=== PATIENT | female | born 1970 | race Caucasian/White ===

== ENCOUNTER 2021-03-02 16:00 | Outpatient (CLI) | payer BC, SELFPAY ==
--- NOTE | ~2021-03-02 | MM_ITS ---
EXAMINATION: MM screening [facility] w cordell HISTORY: Screening TECHNIQUE: Craniocaudal and mediolateral oblique 3-D tomosynthesis images were obtained and synthetic 2-D images were generated. CAD analysis was submitted and interpreted. COMPARISON: No prior mammogram is available for comparison at this institution. BREAST PARENCHYMAL COMPOSITION: There are scattered areas of fibroglandular density. FINDINGS: There is focal asymmetry medial aspect of the left breast on CC view. There are no suspicio us masses, calcifications or architectural distortion in the right breast to suggest malignancy. IMPRESSION: 1. Focal left breast asymmetry medially on CC view. 2. Additional mammographic views and possible breast ultrasound are recommended. BI-RADS Category 0: Incomplete: Needs additional imaging evaluation. Reviewed, dictated and finalized at location A. IMPRESSION: 1. Focal left breast asymmetry medially on CC view. 2. Additional mammographic views and possible breast ultrasound are recommended . BI-RADS Category 0: Incomplete: Needs additional imaging evaluation.
== END 2021-03-02 16:01 | disposition home or self-care (01) ==
LOC: ANHIMG 16:03
PROVIDERS: PCP Internal Medicine; Visit Provider Family Medicine
DX: Z12.31 Encounter for screening mammogram for malignant neoplasm of breast (principal); R92.8 Other abnormal and inconclusive findings on diagnostic imaging of breast
CPT/HCPCS: 77063; 77067

== ENCOUNTER 2021-06-21 12:19 | Outpatient (CLI) | payer BC, SELFPAY ==
--- NOTE | ~2021-06-21 | MMUS_ITS ---
EXAMINATION: MM diagnostic [facility] LT w cordell, US breast LT limited HISTORY: Follow-up left breast asymmetry TECHNIQUE: Additional 3-D tomosynthesis images of the left breast were performed and synthetic 2-D im ages were generated. CAD analysis was submitted and interpreted. High resolution Limited left breast ultrasound was performed. COMPARISON: 03/02/2021 BREAST PARENCHYMAL COMPOSITION: Breast composed of scattered areas of fibroglandular density. FINDINGS: MAMMOGRAPHIC FINDINGS: Focal asymmetry medial aspect of the left breast is less dense with spot compression views. No discre te mass or architectural distortion. There are benign left breast calcifications. ULTRASOUND: Limited left breast ultrasound: At 11:00, 3 cm from the nipple there is a 4 mm cyst. No suspicious ma sses to suggest malignancy. IMPRESSION: 1. Probable benign left breast asymmetry. Small 4 mm benign cyst. 2. Recommend 6 month follow-up diagnostic left mammogram. BI-RADS category 3, probably benign findings. Reviewed, dictated and finalized at location A. GRITY DIRECTOR IMPRESSION: 1. Probable benign left breast asymmetry. Small 4 mm benign cyst. 2. Recommend 6 month follow-up diagnostic left mammogram. BI-RADS category 3, probably benign findings.
== END 2021-06-21 12:20 | disposition home or self-care (01) ==
LOC: ANHIMG 12:21
PROVIDERS: PCP Internal Medicine; Visit Provider Family Medicine
DX: N60.02 Solitary cyst of left breast (principal)
CPT/HCPCS: 76642; 77061; 77065; G0279

== ENCOUNTER 2022-02-07 09:17 | Outpatient (CLI) | payer BC, SELFPAY ==
[2022-02-07 19:02] LABS: Alanine Aminotransferase 31 U/L (6-35); Alkaline Phosphatase 78 U/L (38-126); Anion Gap 15 mmol/L (8-16); Aspartate Amino Transferase 49 U/L (14-36); Bilirubin,Total 0.2 mg/dL (0.2-1.3); Blood Urea Nitrogen 18 mg/dL (7-17); Calcium 8.8 mg/dL (8.4-10.2); Carbon Dioxide 25 mmol/L (22-30); Chloride 99 mmol/L (98-107); Cholesterol 191 mg/dL (0-200); Estimated Glomerular Filt Rate > 60; Glucose 124 mg/dL (65-110); HDL Direct 34 mg/dL; Potassium 4.3 mmol/L (3.4-5.0); Sodium 139 mmol/L (137-145); Triglycerides 133 mg/dL (<150)
[2022-02-07 19:13] LABS: LDL Cholesterol Direct 124 mg/dL
[2022-02-07 19:48] LABS: Hemoglobin A1C 5.9 % (<5.7)
== END 2022-02-07 09:18 | disposition home or self-care (01) ==
LOC: ANHGOSHLAB 09:18
PROVIDERS: PCP Family Medicine; Visit Provider Family Medicine
DX: R73.03 Prediabetes (principal); I10 Essential (primary) hypertension; Z13.220 Encounter for screening for lipoid disorders
CPT/HCPCS: 36415; 80053; 80061; 83036

== ENCOUNTER 2022-03-27 11:57 | Outpatient (CLI) | payer BC, SELFPAY ==
--- NOTE | ~2022-03-27 | MM_ITS ---
EXAMINATION: MM diagnostic [facility] w cordell HISTORY: Overdue six-month follow-up for probably benign left breast asymmetry TECHNIQUE: Craniocaudal, mediolateral, and mediolateral oblique 3-D tomosynthesis images of the breas ts were performed and synthetic 2-D images were generated. CAD analysis was submitted and interpreted . COMPARISON: 06/21/2021, 03/02/2021 BREAST PARENCHYMAL COMPOSITION: There are scattered areas of fibroglandular density. FINDINGS: There is a stable asymmetry in the anterior/middle third of the inner right breast on the c raniocaudal view. There has been no suspicious interval change. No suspicious mass, calcification, or architectural distortion are identified. IMPRESSION: 1. Probably benign asymmetry of the left breast. 2. Given one year of interval stability, recommend 12 month followup diagnostic mammogram with possib le ultrasound. BI-RADS category 3, probably benign findings. Reviewed, dictated and finalized at location A. IMPRESSION: 1. Probably benign asymmetry of the left breast. 2. Given one year of interval stability, recommend 12 month followup diagnostic mammogram with possible ultrasound. BI-RADS category 3, probably benign findings.
== END 2022-03-27 11:58 | disposition home or self-care (01) ==
LOC: ANHIMG 11:58
PROVIDERS: PCP Family Medicine; Visit Provider Family Medicine
DX: R92.8 Other abnormal and inconclusive findings on diagnostic imaging of breast (principal)
CPT/HCPCS: 77062; 77066; G0279

== ENCOUNTER 2023-08-03 08:54 | Outpatient (CLI) | payer OTHER, SELFPAY ==
[2023-08-03 19:23] LABS: Alanine Aminotransferase 29 U/L (6-35); Albumin Level 3.8 g/dL (3.5-5.1); Alkaline Phosphatase 93 U/L (38-126); Anion Gap 3 mmol/L (8-16); Aspartate Amino Transferase 29 U/L (14-36); Bilirubin,Total 0.3 mg/dL (0.2-1.3); Blood Urea Nitrogen 13 mg/dL (7-17); Carbon Dioxide 30 mmol/L (22-30); Chloride 105 mmol/L (98-107); Cholesterol 159 mg/dL (0-200); Estimated Glomerular Filt Rate > 60; Glucose 100 mg/dL (65-110); HDL Direct 36 mg/dL; Potassium 4.5 mmol/L (3.4-5.0); Sodium 138 mmol/L (137-145); Triglycerides 110 mg/dL (<150)
[2023-08-03 19:34] LABS: LDL Cholesterol Direct 108 mg/dL
== END 2023-08-03 08:55 | disposition home or self-care (01) ==
LOC: ANHGOSHLAB 08:57
PROVIDERS: PCP Family Medicine; Visit Provider Family Medicine
DX: R73.03 Prediabetes (principal); Z13.220 Encounter for screening for lipoid disorders; Z13.228 Encounter for screening for other metabolic disorders
CPT/HCPCS: 36415; 80053; 80061; 83036

== ENCOUNTER 2023-09-07 15:54 | Outpatient (CLI) | payer OTHER, SELFPAY ==
--- NOTE | ~2023-09-07 | MM_ITS ---
EXAMINATION: MM screening [facility] w cordell HISTORY: Screening mammogram TECHNIQUE: Craniocaudal and mediolateral oblique 3-D tomosynthesis images were obtained and synthetic 2-D images were generated. CAD analysis was submitted and interpreted. COMPARISON: 03/23/2022 left diagnostic mammogram 06/21/2021 diagnostic mammogram and limited left breast ultrasound 03/02/2021 bilateral screening mammogram BREAST PARENCHYMAL COMPOSITION: There are scattered areas of fibroglandular density. FINDINGS: Stable fibroglandular asymmetry in the anterior medial left breast, not significantly bedolla ed since 03/02/2021. Scattered benign calcifications. There is no evidence of suspicious mass, calcifi cation, or architectural distortion to suggest malignancy in either breast. There has been no suspici ous interval change. IMPRESSION: 1. No mammographic evidence of malignancy. 2. Recommend routine screening mammography in one year. BI-RADS Category 2: Benign finding(s). Reviewed, dictated and finalized at location A.
== END 2023-09-07 15:55 | disposition home or self-care (01) ==
LOC: ANHIMG 15:58
PROVIDERS: PCP Family Medicine; Visit Provider Family Medicine
DX: Z12.31 Encounter for screening mammogram for malignant neoplasm of breast (principal)
CPT/HCPCS: 77063; 77067